=== PATIENT | female | born 1990 | race Hispanic/Latino ===

== ENCOUNTER 2020-07-19 07:33 | Outpatient (CLI) | payer OTHER ==
--- NOTE | 2020-07-19 08:38 | ULT ---
OB ULTRASOUND: HISTORY: anatomy FINDINGS: A single live intrauterine gestation is seen with measurements corresponding to an estimated gestatio nal age of 21 weeks 5 daysand MAMADOU at 11/24/2020. The estimated weight measures 432 g or 15 ounces (74% by Hadlock criteria). biometry: BPD: 5.16 cm, 21 weeks 5 days HC: 19.37 cm, 21 weeks 5 days AC: 16.47 cm, 21 weeks 4 days FL: 3.64 cm, 21 weeks 4 days heart rate: 136bpm Placenta: Anterior and to the left Placenta previa: No AMALIA: 22.6cm Cervical length: 4.1cm A three-vessel cord, cord insertion, kidneys, urinary bladder, stomach, 4 chambered heart, late ral ventricles, cerebellum, spine, lips/nose, upper and lower extremities are visualized. No definite anomalies are seen. IMPRESSION: Single live intrauterine gestation of 21 weeks 5 daysestimated gestational age and MAMADOU at 11/24/2020
== END 2020-07-19 07:34 | disposition home or self-care (01) ==
LOC: BICULT 07:33
PROVIDERS: ATTEND Family Medicine
DX: Z34.82 Encounter for supervision of other normal pregnancy, second trimester (principal); Z3A.21 21 weeks gestation of pregnancy
CPT/HCPCS: 76805

== ENCOUNTER 2020-10-23 18:36 | Day surgery (SDC) | payer OTHER ==
[2020-10-23 19:10] VITALS: BP 120/75; TEMP 98.8; BMI 38.7
[2020-10-23] MEDS ORDERED: hydrALAZINE 20 MG/ML VIAL SLOW IVP PRN (19:46)
--- NOTE | 2020-10-23 19:49 | PDOC.LDHP ---
Labor and Delivery H&P Chief complaint: contractions HPI: 30 y/o at 34w5d, patient of Dr. Hand, presents with ctx since last night at 7pm. She reports they were every 15 mins and have gotten stronger and closer together, although still irregular. Denies VB, LOF, or decreased FM. ROS neg for HEENT, CV, pulm, GI, , neuro, psych, skin, musculoskeletal, or constitutional symptoms other than mentioned above. OB History Details: 3 prior SVDs at term Current complications: none Past Medical History: Obesity Current medications: pre-timmy vitamins Previous surgical history: appendectomy Allergies/Adverse Reactions: Allergies Allergy/AdvReac Type Severity Reaction Status Date / Time No Known Allergies Allergy Verified 10/23/20 19:04 Social history: none - Physical Exam Vital signs reviewed and normal: yes General: NAD, resting Lungs: nonlabored breathing Abdomen: gravid Extremeties: no edema (150s, mod variability, + accels, no decels) Zap contractions every: 2-7 mins - Vaginal Exam cm dilated: 3 (unchanged after 2 hours) Effacement: 25% Station: -3 - Assessment 30 y/o at 34w5d with no e/o PTL. SVE unchanged after 2 hours, ctx spaced out. status reassuring with reactive NST. - Plan -: D/c home with precautions. Advised to keep all appointments.
[2020-10-24] MEDS ORDERED: FLU VACC QS2020-21(6MOS UP)/PF 60 MCG/0.5 ML SYRINGE IM ONE (09:00)
== END 2020-10-23 21:30 | disposition home or self-care (01) ==
LOC: L&D/OP 18:36
PROVIDERS: ATTEND Family Medicine
DX: O47.03 False labor before 37 completed weeks of gestation, third trimester (principal); Z3A.34 34 weeks gestation of pregnancy
CPT/HCPCS: 99283

== ENCOUNTER 2020-10-25 13:14 | Day surgery (SDC) | payer OTHER ==
[2020-10-25 13:52] LABS: Amnisure Test No Membranes Rupture (No Rupture)
[2020-10-25 13:53] LABS: Amnisure Internal Control QC ACCEPTABLE (ACCEPTABLE)
[2020-10-25 14:30] VITALS: TEMP 98.3; BMI 38.7
[2020-10-25] MEDS ORDERED: hydrALAZINE 20 MG/ML VIAL SLOW IVP PRN (14:54)
--- NOTE | 2020-10-25 15:23 | PRG ---
DATE OF SERVICE: 10/25/2020 TIME OF SERVICE: 1445 hours. PRESENTING COMPLAINT: Contractions at 35 weeks, possible rupture of membranes. HISTORY OF PRESENT ILLNESS: The patient is a 30-year-old, 4, para 3, EDC of 11/29, placing her at 35 weeks' gestation. She thought she might be leaking fluid. Complains of some contractions. She reports active fetus. No bleeding. 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 Antibody negative. Pap negative. Rubella immune. VDRL nonreactive. Hepatitis B, GC, chlamydia negative. Group B strep positive colonization. History of spontaneous vaginal delivery x3 at term. PAST MEDICAL HISTORY: None. PAST SURGICAL HISTORY: Appendectomy. SOCIAL HISTORY: Denies tobacco, alcohol, or IV drug abuse. ALLERGIES: NONE. MEDICATIONS: vitamins. FAMILY HISTORY: Negative. PHYSICAL EXAMINATION: VITAL SIGNS: Temperature 98.7, pulse 85, respirations 18, blood pressure 132/72. HEENT: Within normal limits. LUNGS: Clear to auscultation bilaterally. HEART: Regular rate and rhythm. ABDOMEN: Soft, nontender. Occasional indelible contractions. Fundal height 36. FHTs 140s. Vulva without lesions. Vagina without discharge. Cervix 3, 50, -2, cephalic. This is the same as the cervical exam that the patient had 3 days ago upon presentation to Labor and delivery. LABORATORY STUDIES: monitoring is carried out for greater than 20 minutes, which revealed category 1 strip. The patient had contractions approximately q.5-10 minutes upon presentation, but with p.o. hydration, decreased to q.20-25 minutes. AmniSure was collected and is negative. IMPRESSION: 35 weeks' gestation with cervical change. No evidence of active labor in grand multiparous patient in the 3rd trimester. No evidence of rupture of membranes. PLAN: ER precautions for labor. Discharge home. Keep scheduled followup on 11/[address] Hand at [facility]. Job ID: [id number]
== END 2020-10-25 15:30 | disposition home health service (06) ==
LOC: L&D/OP 13:14
PROVIDERS: ATTEND Family Medicine
DX: O47.03 False labor before 37 completed weeks of gestation, third trimester (principal); Z3A.35 35 weeks gestation of pregnancy
CPT/HCPCS: 84112; 99283

== ENCOUNTER 2020-11-19 09:02 | Inpatient (IN) | payer MEDICAID, OTHER, SELFPAY ==
[2020-11-19] MEDS ORDERED: Bupivacaine 0.25% HCL 30 ML VIAL ONE (09:28)
[2020-11-19] MEDS ORDERED: Methylergonovine 0.2 MG/ML VIAL IM PRN (09:40)
[2020-11-19] MEDS ORDERED: Diphenoxylate HCl/Atropine Tablet PO PRN (09:40)
[2020-11-19] MEDS ORDERED: NS w/ Oxytocin 30 units 500 ML IV PRN (09:40)
[2020-11-19] MEDS ORDERED: Ondansetron PF 4 MG/2 ML Vial IVP PRN ×3 (09:40→18:19)
[2020-11-19] MEDS ORDERED: Misoprostol 200 MCG TAB PR PRN (09:40)
[2020-11-19] MEDS ORDERED: Promethazine HCl 25 MG/ML VIAL IM PRN ×3 (09:40→18:19)
[2020-11-19] MEDS ORDERED: Ibuprofen 800 MG TAB PO PRN (09:40)
[2020-11-19] MEDS: Lactated Ringer's 1,000 ML IV SCH ×2 (09:40→12:00)
[2020-11-19] MEDS ORDERED: Butorphanol Tartrate 1 MG/ML VIAL SLOW IVP PRN (09:40)
[2020-11-19] MEDS ORDERED: hydrALAZINE 20 MG/ML VIAL SLOW IVP PRN ×2 (09:40→18:19)
[2020-11-19] MEDS ORDERED: Lidocaine 1% (PF) 30 ML VIAL SC PRN (09:40)
[2020-11-19] MEDS ORDERED: Carboprost 250 MCG/ML AMP IM PRN (09:40)
[2020-11-19] MEDS ORDERED: Penicillin G Potassium 5 MILL.UNITS VIAL ONE ×2 (09:40)
[2020-11-19] MEDS ORDERED: HYDROcodone/Acetaminophen 5/325 mg Tablet PO PRN ×2 (09:40→18:19)
[2020-11-19] MEDS ORDERED: Penicillin G Potassium 5 MILL.UNITS in Sodium Chloride 0.9% 100 ML IVPB SCH (09:45)
[2020-11-19 09:57] LABS: Mean Corpuscular HGB CONC 34.6 g/dL (32.0-36.0); Mean Corpuscular Hemoglobin 31.6 pg (27.0-31.0); Mean Corpuscular Volume 91.2 fL (78.0-98.0); Mean Platelet Volume 7.9 fL (7.4-10.4); Platelet Count 231 thou/uL (130-400); RBC Distribution Width 12.3 % (11.5-14.5); Red Blood Cell (RBC) Count 4.45 mill/uL (4.20-5.40); White Blood Cell (WBC) Count 8.2 thou/uL (4.8-10.8)
[2020-11-19 10:36] LABS: HBSAg Index 0.21 S/CO (0-0.99); Hep B Surf Ag Non-Reactive S/CO (NonReactive); Syphilis Antibody Nonreactive (Nonreactive); Syphilis Antibody Index 0.04 S/CO (<1.00 Non-Reactive)
[2020-11-19] MEDS ORDERED: Fentanyl 4 mcg/Bup 0.1% Cadd 100 ML ONE (10:43)
[2020-11-19 11:11] VITALS: BMI 39.4
[2020-11-19] MEDS ORDERED: diphenhydrAMINE 50 MG/ML VIAL IVP PRN (11:54)
[2020-11-19] MEDS ORDERED: Lactated Ringer's 500 ML IV PRN (11:54)
[2020-11-19] MEDS ORDERED: Acetaminophen 325 MG TAB PO PRN (11:54)
[2020-11-19] MEDS ORDERED: Naloxone HCl 0.4 mg/ml Vial IVP PRN ×2 (11:54)
[2020-11-19] MEDS ORDERED: ePHEDrine 50 MG/ML VIAL SLOW IVP PRN (11:54)
[2020-11-19] MEDS ORDERED: Communication Order-Pharmacy FS SCH (12:00)
[2020-11-19] MEDS ORDERED: Fentanyl 4 mcg/Bupivacaine 0.1% Cassette 100 ML EPIDURAL SCH (12:00)
[2020-11-19] MEDS: Penicillin G 2.5 MILL.units 2.5 MILL.UNITS in Premix Bag 1 BAG IVPB SCH ×2 (13:16→19:29)
[2020-11-19 14:19] LABS: SARS-CoV-2 PCR by NAA Not Detected (NotDetected)
[2020-11-19] MEDS ORDERED: Lanolin Ointment 7 GM TUBE TOP PRN (18:19)
[2020-11-19] MEDS ORDERED: diphenhydrAMINE 25 MG CAP PO PRN (18:19)
[2020-11-19] MEDS ORDERED: Bisacodyl 10 MG SUPP PR PRN (18:19)
[2020-11-19] MEDS ORDERED: Adacel (T-DAP) 0.5 ML SYRINGE IM ONE (18:19)
[2020-11-19] MEDS ORDERED: Benzocaine-Menthol 82.5 ML CAN TOP PRN (18:19)
[2020-11-19] MEDS ORDERED: Milk Of Magnesia 30 ML UDCUP PO PRN (18:19)
[2020-11-19] MEDS ORDERED: NS w/ Oxytocin 30 units 500 ML IVPB SCH (19:30)
[2020-11-19] MEDS: Ibuprofen 800 MG TAB PO SCH (21:28)
[2020-11-19] MEDS: Docusate Calcium (SURFAK) 240 MG CAP PO SCH (21:28)
[2020-11-20] MEDS: HYDROcodone/Acetaminophen 5/325 mg Tablet PO PRN ×4 (00:15→12:35)
[2020-11-20] MEDS: Ibuprofen 800 MG TAB PO SCH ×2 (05:06→13:58)
[2020-11-20] MEDS: Docusate Calcium (SURFAK) 240 MG CAP PO SCH (08:49)
[2020-11-20] MEDS: Ferrous Sulfate 325 MG TAB PO SCH ×2 (08:53→15:41)
[2020-11-20] MEDS ORDERED: Prenatal Vitamin 1 TAB PO SCH (09:00)
[2020-11-20 16:07] VITALS: BP 129/68; TEMP 98.7
[2020-11-20] MEDS ORDERED: FLU VACC QS2020-21(6MOS UP)/PF 60 MCG/0.5 ML SYRINGE IM ONE (17:38)
== END 2020-11-20 17:55 | disposition home or self-care (01) | DRG 807 ==
LOC: L&D 09:02 → 3SW 19:05
PROVIDERS: ADMIT Family Medicine; ATTEND Family Medicine
PROC: 10E0XZZ Delivery of Products of Conception, External Approach (ICD-10-PCS; principal; 2020-11-19)
PROC: 10907ZC Drainage of Amniotic Fluid, Therapeutic from Products of Conception, Via Natural or Artificial Opening (ICD-10-PCS; 2020-11-19)
DX: O99.824 Streptococcus B carrier state complicating childbirth (principal); Z37.0 Single live birth; Z3A.38 38 weeks gestation of pregnancy; Z23 Encounter for immunization; Z20.822 Contact with and (suspected) exposure to COVID-19; O99.214 Obesity complicating childbirth; E66.9 Obesity, unspecified
CPT/HCPCS: 36415; 51702; 85027; 86780; 86850; 86900; 86901; 87340; 87635; 90471; 90662; G0008; J2540; J2590; S0020; U0003; U0005